=== PATIENT | male | born 1965 ===

== ENCOUNTER 2016-08-16 08:01 | Day surgery (SDC) | payer MEDICARE, OTHER ==
[2016-08-16] MEDS ORDERED: Lactated Ringer's 500 ML IV ONE (08:31)
[2016-08-16 10:25] VITALS: TEMP 97
[2016-08-16 10:44] VITALS: BP 102/66; PULSE 57; RESP 20; O2SAT 97
== END 2016-08-16 10:48 | disposition home or self-care (01) ==
LOC: H.ENDO 08:01
PROVIDERS: ATTEND Internal Medicine Gastroenterology
DX: Z12.11 Encounter for screening for malignant neoplasm of colon (principal); I10 Essential (primary) hypertension; K64.8 Other hemorrhoids; R12 Heartburn; K29.70 Gastritis, unspecified, without bleeding; K20.9 Esophagitis, unspecified
CPT/HCPCS: 43239; 45378; 88305; J7120

== ENCOUNTER 2016-10-30 09:25 | Emergency (ER) | payer MEDICARE, OTHER ==
[2016-10-30 09:52] VITALS: BP 153/82; PULSE 110; RESP 16; TEMP 98.3; O2SAT 100
[2016-10-30] MEDS ORDERED: Magnesium Citrate Oral SOL (300 ml) PO STA (11:12)
--- NOTE | 2016-10-30 11:30 | ED PDOC ---
HPI: Abdomen Time Seen by Provider: 10/30/16 10:10 Chief Complaint (Nursing): Abdominal Pain Chief Complaint (Provider): Constipation History Per: Patient History/Exam Limitations: no limitations Additional Complaint(s): Patient is a 51 y/o male presenting to the emergency department for constipation that started today after taking 5 percocets for dental pain, which was given to him by a friend. States that his stool is hard and painful to pass. Currently on antibiotics and Motrin. Denies vomiting and abdominal pain. PCP: Dr. Adams Gamez Past Medical History Reviewed: Historical Data, Nursing Documentation, Vital Signs Vital Signs: Last Vital Signs Temp 98.3 F 10/30/16 09:47 Pulse 110 H 10/30/16 09:47 Resp 16 10/30/16 09:47 BP 153/82 H 10/30/16 09:47 Pulse Ox 100 10/30/16 11:41 - Medical History PMH: HTN - Surgical History Surgical History: No Surg Hx - Family History Family History: States: Unknown Family Hx - Social History Current smoker - smoking cessation education provided: No Ex-Smoker (has not smoked in the last 12 months): No Alcohol: None Drugs: Denies - Home Medications Home Medications: Ambulatory Orders Medication Instructions Recorded Docusate Sodium [Colace] 100 mg PO BID #20 capsule 10/30/16 - Allergies Allergies/Adverse Reactions: Allergies Allergy/AdvReac Type Severity Reaction Status Date / Time Penicillins Allergy SHORTNESS Verified 08/16/16 09:00 OF BREATH Review of Systems ROS Statement: Except As Marked, All Systems Reviewed And Found Negative Gastrointestinal: Positive for: Constipation. Negative for: Vomiting, Abdominal Pain Physical Exam - Reviewed Nursing Documentation Reviewed: Yes Vital Signs Reviewed: Yes - Physical Exam Appears: Positive for: Well, Non-toxic, No Acute Distress Head Exam: Positive for: ATRAUMATIC, NORMAL INSPECTION, NORMOCEPHALIC Skin: Positive for: Normal Color, Warm, DRY Eye Exam: Positive for: EOMI, Normal appearance, PERRL Neck: Positive for: Normal, Painless ROM, Supple Cardiovascular/Chest: Positive for: Regular Rate, Rhythm. Negative for: Murmur Respiratory: Negative for: Accessory Muscle Use, Respiratory Distress Gastrointestinal/Abdominal: Positive for: Normal Exam, Soft. Negative for: Tenderness Rectal: Positive for: Hemorrhoids (external), Other (small amount of stool noted on fingertip; etcher electrolytic: RN Adriana) Extremity: Positive for: Normal ROM. Negative for: Pedal Edema Neurologic/Psych: Positive for: Alert, Oriented (x3) - ECG O2 Sat by Pulse Oximetry: 100 (RA) Pulse Ox Interpretation: Normal Medical Decision Making Medical Decision Making: Time: 10:15 Initial plan: Flee Enema [address] Reevaluation FLeet enema given without relief of symptoms. 11:03 Verbal consent was received before procedure. Manual disimpaction was achieved with small amount of stool dislodged. Patient is now able to pass comfortably. Upon provider reevaluation patient is feeling better, is medically stable, and requires no further treatment in the ED at this time. Patient will be discharged with Rx for Colace. Counseling was provided and all questions were answered regarding diagnosis. There is agreement to discharge plan. Return if symptoms persist or worsen. Clinical Impression: Constipation Scribe Attestation: Documented by Ashley Blanc, acting as a scribe for MARIELY Cavazos. Provider Scribe Attestation: All medical record entries made by the Scribe were at my direction and personally dictated by me. I have reviewed the chart and agree that the record accurately reflects my personal performance of the history, physical exam, medical decision making, and the department course for this patient. I have also personally directed, reviewed, and agree with the discharge instructions and disposition. Disposition - Clinical Impression Clinical Impression: Constipation - Patient ED Disposition Is Patient to be Admitted: No - Disposition Disposition: Routine/Home Disposition Time: 11:03 Condition: IMPROVED Prescriptions: Docusate Sodium [Colace] 100 mg PO BID #20 capsule Instructions: Constipation (DC), High Fiber Diet (ED) Forms: [employer] ([place])
== END 2016-10-30 11:40 | disposition home or self-care (01) ==
LOC: H.ER 09:25
DX: K59.00 Constipation, unspecified (principal); I10 Essential (primary) hypertension; Z88.0 Allergy status to penicillin